=== PATIENT | male | born 1930 | race Caucasian/White ===

== ENCOUNTER 2017-05-03 11:27 | Inpatient (IN) | payer OTHER ==
--- NOTE | 2017-05-03 12:07 | CPEKG ---
Heart Rate: 80 RR Interval: 750 P-R Interval: 204 QRSD Interval: 94 QT Interval: 448 QTC Interval: 517 P [place]: 79 QRS [place]: -62 T Wave [place]: 258 EKG Severity - ABNORMAL ECG - EKG Impression: SINUS RHYTHM EKG Impression: LEFT ATRIAL ABNORMALITY EKG Impression: LEFT ANTERIOR FASCICULAR BLOCK EKG Impression: ANTERIOR INFARCT, AGE INDETERMINATE EKG Impression: BORDERLINE T ABNORMALITIES, INFERIOR LEADS EKG Impression: PROLONGED QT INTERVAL Electronically Signed By: Agnes Fernandez 03-May-2017 20:26:28
[2017-05-03] MEDS ORDERED: NS 500 ML IV ONE (13:22)
--- NOTE | 2017-05-03 13:26 | EDPHY ---
H & P Time Seen by Provider: 05/03/17 12:56 HPI/ROS: CHIEF COMPLAINT: Weight loss, left rib pain HISTORY OF PRESENT ILLNESS: The patient is a an 87-year-old male who presents emergency department with left rib pain after falling. The patient states he fell 2 times on Sunday. He now has left anterior rib pain. It is worse with movement. Patient has no significant shortness of breath. He has a chronic cough that is productive of clear sputum. He has no abdominal pain. No nausea or vomiting. No headache or neck pain. The patient does not think he hit his head when he fell. The patient states he does not faint when he falls. He does not become dizzy. He merely "drops." REVIEW OF SYSTEMS: My complete review of systems is negative except as mentioned in the HPI. Past Medical/Surgical History: Prostate CA, lung nodules, syncope, mechanical falls, constipation, failure to thrive, acute kidney injury, hypertension, malnutrition Past surgical history: Prostatectomy Social history: The patient drinks occasionally. He occasionally smokes cigars. Smoking Status: Current some day smoker Physical Exam: Vitals noted GENERAL: cachectic, alert. HEAD: No evidence of trauma. EYES: PERRLA, EOMI, normal to inspection. ENT: Airway intact, no dental or oral injury, no malocclusion, dry mucous membranes, normal external examination. NECK: The trachea is midline. There is no crepitus. The C-spine is nontender. NEXUS criteria is negative (no midline tenderness, no distracting injury, no altered mental status, no recent alcohol use, no focal neurologic deficit). RESPIRATORY: Clear to auscultation bilaterally, no rales, rhonchi or wheezing. There is no crepitus or palpable rib fractures. Minimal left anterior tenderness to palpation. CVS: Regular rate and rhythm, no rubs, murmurs, or gallops. ABDOMEN: Soft, nontender, nondistended, normal bowel sounds, no bruising or abrasions. Pelvis: Stable. No tenderness palpation. Hips full range of motion. BACK: Normal to inspection, no spinal tenderness, no spinal step off, no notable bruising or abrasions. SKIN: Normal color, warm, dry. No pallor or diaphoresis. EXTREMITIES: Right upper extremity: Atraumatic. No visible signs of trauma. No tenderness palpation. Neurovascular intact distally. Left upper extremity: Atraumatic. No visible signs of trauma. No tenderness palpation. Neurovascular intact distally. Right lower extremity: Atraumatic. No visible signs of trauma. No tenderness palpation. Neurovascular intact distally. Left lower extremity: Atraumatic. No visible signs of trauma. No tenderness palpation. Neurovascular intact distally. Atraumatic, neurovascularly intact distally in all extremities, pelvis is stable , hips with full range of motion, moves all extremities freely. NEURO/PSYCH: Alert and oriented x 3, GCS 15, normal mood and affect, normal motor sensory exam. Constitutional: Initial Vital Signs Temperature (C) 36.4 C 05/03/17 11:35 Heart Rate 80 05/03/17 11:35 Respiratory Rate 20 05/03/17 11:35 Blood Pressure 83/55 L 05/03/17 11:35 O2 Sat (%) 88 L 05/03/17 11:35 O2 Delivery Mode Room Air Allergies/Adverse Reactions: Penicillins Allergy (Unknown, Verified 05/03/17 11:38) Unknown Home Medications: Medication Instructions Recorded NK [No Known Home Meds] 05/03/17 Medical Decision Making - Diagnostics Imaging Results: Imaging Impressions Chest X-Ray 05/03/17 13:22 Impression: 1. Acute displaced left eighth and ninth rib fractures, with a small left-sided pneumothorax. 2. Small left pleural effusion versus hemothorax. 3. Bilateral lower lobe infiltrates, left greater than right, and a right posterior perihilar infiltrate. Clinical correlation and follow-up radiography to ensure complete resolution is suggested. If the above findings fail to resolve, chest CT imaging is warranted. Findings were discussed with ELTON FERNANDEZ MD at 14:29, on 05/03/2017. Head CT 05/03/17 13:22 Impression: Stable noncontrast CT of the brain, with underlying atrophy and white matter disease. Results called to Dr. Elton Fernandez at 2:10 PM at the time of the interpretation. ED Course/Re-evaluation: In the emergency department I discussed possible etiologies with the patient. I answered all his questions. Patient was given normal saline 500 mL IV for hydration. Laboratory studies were obtained due to his recurrent falls. I ordered head CT without contrast due to his recurrent falls. Chest x-ray was ordered. The patient has abnormal laboratory values. His troponin is elevated at 1.79. His creatinine is elevated 1.9. He has mildly elevated LFTs. He is mildly anemic. EKG: Sinus rhythm at 80. Left anterior fascicular block. Prolonged QT. Old anterior infarct. ST elevation in V3. On recheck the patient continues to complain of mild left rib pain. No new chest pain or shortness of breath. Head CT: Please refer the dictated report by the radiologist, Dr. Calixto. No acute disease noted. Chest x-ray: I discussed the result with Dr. Govea. The patient has 2 left -sided rib fractures. There is a small left-sided pneumothorax. Patient has a noted opacity in the right hilum as well as lower lobe infiltrate. I discussed with Dr. Govea the possibility of pneumonia verses mass verses hemothorax. I consulted with Dr. Ventura from the hospitalist service. We reviewed the patient, labs, and x-ray images. Blood cultures were ordered. Patient was given aspirin 324 mg orally. He was given Levaquin 750 mg IV to cover for possible infiltrate. I paged both Cardiology and Trauma Services. On recheck the patient was without new complaint. I CT of the chest was ordered. Due the patient's elevated creatinine 1.9, the test was ordered without contrast. I discussed this with Dr. Govea. I discussed placement with Dr. Ventura. He recommended PCU. We discussed the diagnosis of rib fracture, pneumothorax, mass Differential Diagnosis: My differential includes but is not limited to fracture, contusion, pneumothorax , hemothorax, dissection, aneurysm, ACS, acute VT, electrolyte abnormality, sugar abnormality, subdural hematoma, CVA, malignancy, rib fracture, pneumothorax, hemothorax, mass Critical Care Time: The patient required 35 minutes of critical care time. This was exclusive of any unbundled procedure. This was due to the patient's need for frequent rechecks, diagnosis with an elevated troponin v, pulmonary mass vs hemothorax vs infiltrate, pneumothorax, rib fracture, consultation with Trauma Service, cardiology and hospitalist service. - Data Points Laboratory Results: Laboratory Results 05/03/17 12:01 05/03/17 12:05/03/17 05/03/17 12: 12: WBC 3.90 10^3/uL 10^3/uL (3.80-9.50) RBC 3.76 10^6/uL L 10^6/uL (4.40-6.38) Hgb 12.1 g/dL L g/dL (13.7-17.5) Hct 36.9 % L % (40.0-51.0) MCV 98.1 fL fL (81.5-99.8) MCH 32.2 pg pg (27.9-34.1) MCHC 32.8 g/dL g/dL (32.4-36.7) RDW 14.5 % % (11.5-15.2) Plt Count 109 10^3/uL L 10^3/uL (150-400) MPV 11.4 fL fL (8.7-11.7) Neut % (Auto) 86.1 % H % (39.3-74.2) Lymph % (Auto) 10.3 % L % (15.0-45.0) [place] % (Auto) 2.3 % L % (4.5-13.0) Eos % (Auto) 0.0 % L % (0.6-7.6) Baso % (Auto) 1.0 % % (0.3-1.7) Nucleat RBC Rel Count 0.0 % % (0.0-0.2) Absolute Neuts (auto) 3.36 10^3/uL 10^3/uL (1.70-6.50) Absolute Lymphs (auto) 0.40 10^3/uL L 10^3/uL (1.00-3.00) Absolute Monos (auto) 0.09 10^3/uL L 10^3/uL (0.30-0.80) Absolute Eos (auto) 0.00 10^3/uL L 10^3/uL (0.03-0.40) Absolute Basos (auto) 0.04 10^3/uL 10^3/uL (0.02-0.10) Absolute Nucleated RBC 0.00 10^3/uL 10^3/uL (0-0.01) Immature Gran % 0.3 % % (0.0-1.1) Seg Neutrophils % 20 % % Band Neutrophils % 54 % % Lymphocytes % 15 % % Monocytes % 3 % % Metamyelocytes % 8 % % Immature Gran # 0.01 10^3/uL 10^3/uL (0.00-0.10) Absolute Seg Neuts 0.78 10^/uL L 10^/uL (1.70-6.50) Absolute Band Neuts 2.11 10^3/uL H 10^3/uL (0.00-0.70) Absolute Lymphocytes 0.59 10^3/uL L 10^3/uL (1.00-3.00) Absolute Monocytes 0.12 10^3/uL L 10^3/uL (0.30-0.80) Absolute Metamyelocyte 0.31 10^3/mL H 10^3/mL (0.00-0.00) Toxic Vacuolation PRESENT H Dohle Bodies PRESENT H Platelet Estimate DECREASED L (ADEQ) Polychromasia 1+ H Oval Macrocytes 1+ H Echinocytes 1+ H Elliptocytes 1+ H Smear Review By Pending Sodium 135 mEq/L mEq/L (134-144) Potassium 4.3 mEq/L mEq/L (3.5-5.2) Chloride 100 mEq/L mEq/L (97-110) Carbon Dioxide 18 mEq/l L mEq/l (22-31) Anion Gap 17 mEq/L H mEq/L (8-16) BUN 54 mg/dL H mg/dL (7-23) Creatinine 1.9 mg/dL H mg/dL (0.7-1.3) Estimated GFR 34 Glucose 101 mg/dL H mg/dL (70-100) Calcium 9.4 mg/dL mg/dL (8.5-10.4) Total Bilirubin 1.7 mg/dL H mg/dL (0.1-1.4) Conjugated Bilirubin 0.9 mg/dL H mg/dL (0.0-0.5) Unconjugated Bilirubin 0.8 mg/dL mg/dL (0.0-1.1) AST 48 IU/L IU/L (17-59) ALT 23 IU/L IU/L (21-72) Alkaline Phosphatase 90 IU/L IU/L (38-126) Troponin I 1.790 ng/mL H ng/mL (0.000-0.034) Total Protein 6.1 g/dL L g/dL (6.3-8.2) Albumin 3.0 g/dL L g/dL (3.5-5.0) Lipase 49 IU/L IU/L (23-300) Medications Given: Discontinued Medications Sodium Chloride (Ns) 500 mls @ 1,000 mls/hr IV EDNOW ONE PRN Reason: Protocol Stop: 05/03/17 13:51 Last Admin: 05/03/17 13:46 Dose: 500 mls Departure - Departure Disposition: [facility] Inpatient Acute Clinical Impression: Fall Qualifiers: Encounter type: initial encounter Qualified Code(s): W19.XXXA - Unspecified fall, initial encounter Chest wall contusion Qualifiers: Encounter type: initial encounter Laterality: left Qualified Code(s): S20.212A - Contusion of left front wall of thorax, initial encounter Rib fractures Qualifiers: Encounter type: initial encounter Rib fracture type: multiple ribs Laterality: left Pneumothorax Qualifiers: Pneumothorax type: traumatic Encounter type: initial encounter Qualified Code(s ): S27.0XXA - Traumatic pneumothorax, initial encounter Condition: Good Instructions: Contusion in Adults (ED), Fall Prevention (ED)
[2017-05-03 14:01] LABS: % IMMATURE GRANULYOCYTES 0.3 % (0.0-1.1); ABSOLUTE IMMATURE GRANULOCYTES 0.01 10^3/uL (0.00-0.10); ADD DIFF? NO; ADD MORPH? NO; ADD SCAN? YES; ATYPICAL LYMPHOCYTE FLAG 0 (0-99); FRAGMENT RBC FLAG 0 (0-99); HEMATOCRIT 36.9 % (40.0-51.0); HEMOGLOBIN 12.1 g/dL (13.7-17.5); LIPEMIA HEMOLYSIS FLAG 80 (0-99); MEAN CELL HEMOGLOBIN 32.2 pg (27.9-34.1); MEAN CELL HEMOGLOBIN CONCENTR. 32.8 g/dL (32.4-36.7); MEAN CELL VOLUME 98.1 fL (81.5-99.8); MEAN PLATELET VOLUME 11.4 fL (8.7-11.7); PLATELET CLUMPS FLAG 20 (0-99); PLATELET COUNT 109 10^3/uL (150-400); RED BLOOD CELL COUNT 3.76 10^6/uL (4.40-6.38); RED CELL DISTRIBUTION WIDTH 14.5 % (11.5-15.2)
[2017-05-03 14:03] LABS: LEFT SHIFT FLG 300 (0-99)
[2017-05-03 14:08] LABS: ALANINE AMINOTRANSFERASE 23 IU/L (21-72); ALKALINE PHOSPHATASE 90 IU/L (38-126); ANION GAP 17 mEq/L (8-16); ASPARTATE AMINOTRANSFERASE 48 IU/L (17-59); BILIRUBIN,TOTAL 1.7 mg/dL (0.1-1.4); BILIRUBIN-CONJUGATED 0.9 mg/dL (0.0-0.5); BILIRUBIN-UNCONJUGATED 0.8 mg/dL (0.0-1.1); CALCIUM 9.4 mg/dL (8.5-10.4); CARBON DIOXIDE 18 mEq/l (22-31); CHLORIDE 100 mEq/L (97-110); CREATININE 1.9 mg/dL (0.7-1.3); GLOMERULAR FILTRATION RATE 34; GLUCOSE 101 mg/dL (70-100); POTASSIUM 4.3 mEq/L (3.5-5.2); SODIUM 135 mEq/L (134-144); TOTAL PROTEIN 6.1 g/dL (6.3-8.2)
[2017-05-03 14:24] LABS: SCAN POSITIVE
[2017-05-03] MEDS ORDERED: ASPIRIN 81 MG CHEWABLE TAB PO ONE (14:29)
[2017-05-03 14:36] LABS: ELLIPTOCYTES 1+; MACROCYTES 1+; PLATELET ESTIMATE DECREASED (ADEQ); POLYCHROMASIA 1+; TOXIC VACUOLIZATION PRESENT
[2017-05-03 14:37] LABS: ECHINOCYTES 1+
[2017-05-03] MEDS ORDERED: ONDANSETRON 4 MG/2 ML VIAL IVP PRN (15:53)
[2017-05-03] MEDS ORDERED: ONDANSETRON DISINTEGRATING 4 MG TAB PO PRN (15:53)
[2017-05-03] MEDS ORDERED: oxyCODONE IR 5 MG TAB PO PRN (15:53)
[2017-05-03] MEDS ORDERED: ACETAMINOPHEN 325 MG TAB PO PRN (15:53)
[2017-05-03] MEDS ORDERED: NS 1,000 ML IV ONE (16:13)
--- NOTE | 2017-05-03 16:56 | CPEKG ---
Heart Rate: 91 RR Interval: 659 P-R Interval: 216 QRSD Interval: 94 QT Interval: 412 QTC Interval: 508 P [place]: 68 QRS [place]: -50 T Wave [place]: 97 EKG Severity - ABNORMAL ECG - EKG Impression: SINUS RHYTHM EKG Impression: FIRST DEGREE AV BLOCK EKG Impression: LEFT ATRIAL ABNORMALITY EKG Impression: LEFT ANTERIOR FASCICULAR BLOCK EKG Impression: ANTERIOR INFARCT, AGE INDETERMINATE EKG Impression: PROLONGED QT INTERVAL EKG Impression: COMPARED WITH 03 MAY 2017 AT 12:02, NO SIGNIFICANT CHANGE Electronically Signed By: Philly Louie 04-May-2017 21:24:56
--- NOTE | 2017-05-03 17:13 | ECHO ---
[id number] + + [address] : : [place] [address] : : [phone] + Adult Echocardiographic Report + ---------+ :Name: YESSICA MIXONfletchermarcus Date: 05/03/2017 04:06 PM : : Hospital Admission Number: [id number] Locat ion: ER10: :: 1930 Gender: Male Height: 67 in : :Age: 87 yrs Race: WH Weight: 95 lb : :Reason For Study: eval for wall motion abnormalities : : BSA: 1.5 mete rs2 : :History: ecg anterior [place] : + ---------+ MMode/2D Measurements & Calculations IVSd: 1.3 cm LVIDd: 3.7 cm FS: 40.2 % Ao root diam: 3.6 cm LVPWd: 1.2 cm LVIDs: 2.2 cm EDV(Teich): 57.4 ml ESV(Teich): 16.2 ml EF(Teich): 71.8 % LVOT diam: 2.1 cm LVOT area: 3.5 cm2 Normal Measurement Values: + + :LVIDd (3.5-5.7cm) IVSd (0.6-1.1cm) LVPWd (0.6-1.1cm) Aortic Root (2.0-3.7cm)Left Atrium (1.5-4.0cm): :LV Vol(d) (76-115ml) LV Vol(s) (29-48ml) Ejec Fraction (50-65%)PV Young (0.6- 1.2m/s) TV Young (0.4-1.0m/s) : :MV E Young (0.8-1.0m/s)MV A Young (0.3-1.0m/s)LVOT Young (0.7-1.2m/s) Asc Ao Young ( 0.9-1.8m/s) : + + Doppler Measurements & Calculations Ao V2 max: LV V1 max: SV(LVOT): PA V2 max: 250.0 cm/sec 79.7 cm/sec 49.2 ml 99.1 cm/sec Ao max P.1 mmHg LV V1 max PG: PA max P.9 mmHg Ao mean P.0 mmHg2.5 mmHg Ao V2 mean: LV V1 mean P.7 cm/sec 1.0 mmHg Ao V2 VTI: 41.0 cm LV V1 mean: 57.2 cm/sec TRE(I,D): 1.2 cm2 LV V1 VTI: 14.2 cm TRE(V,D): 1.1 cm2 TR max young: 274.0 cm/sec TR max P.0 mmHg RAP systole: 5.0 mmHg RVSP(TR): 35.0 mmHg Left Ventricle The left ventricle is normal in size and function. There is moderate concentric left ventricular hypertrophy. Ejection Fraction = 65-70%. No regional wall motion abnormalities noted. Right Ventricle The right ventricle is normal in size and function. Atria The left atrial size is normal. Right atrial size is normal. Mitral Valve The mitral valve leaflets appear thickened, but open well. There is mild mitral annular calcification. There is no mitral valve stenosis. There is mild mitral regurgitation. Tricuspid Valve The tricuspid valve is normal in structure and function. There is no tricuspid stenosis. There is mild tricuspid regurgitation. Right ventricular systolic pressure is 35mmHg. There is Doppler evidence for mild pulmonary hypertension. Aortic Valve The aortic valve is trileaflet. Moderate Aortic Valve Calcification. Mild valvular aortic stenosis. Mild aortic regurgitation. Pulmonic Valve The pulmonic valve is normal in structure and function. Mild pulmonic valvular regurgitation. Great Vessels Mild aortic root dilatation. Pericardium/Pleural There is no pericardial effusion. There is a large pleural effusion. Conclusion A two-dimensional transthoracic echocardiogram with M-mode and Doppler was performed. Technically limited apical window. The left ventricle is normal in size and function. There is moderate concentric left ventricular hypertrophy. Ejection Fraction = 65-70%. Mild mitral annular calcification. There is mild mitral regurgitation. There is mild tricuspid regurgitation. Right ventricular systolic pressure is 35mmHg. There is Doppler evidence for mild pulmonary hypertension. Moderate Aortic Valve Calcification Mild valvular aortic stenosis. Mild aortic regurgitation. Mild pulmonic valvular regurgitation. Mild aortic root dilatation. There is a large pleural effusion. Final Reading Physician: Juana Longoria signed on 05/03/2017 05:12 PM Ordering Physician: ERENDIRA ROWE Performed By: Rosanne Coello
--- NOTE | 2017-05-03 17:31 | GHP ---
[f rep st] HISTORY AND PHYSICAL DATE OF ADMISSION: 05/03/2017 CHIEF COMPLAINT: Fall 3 days ago. HISTORY OF PRESENT ILLNESS: This is an 87-year-old man who lives in [place] who had a fall 4 days ago. He landed on his left side. He has had left chest pain since then. He fell again yesterday. Because of these 2 falls, he presented to the emergency department. He denies any preceding dizzine ss, shortness of breath, chest pain, or palpitations before the fall. He is not really sure why he h as fallen. He tells me he has fallen about 4 times in the past year, 2 in the last week. He is not really feeling short of breath right now. He has had problems eating for some time which have gotten worse in the last month. He has also had problems speaking with a very hoarse voice. He has lost a lot of weight recently. PAST MEDICAL/SURGICAL HISTORY: 1. Hypertension. 2. BPH, status post [address] Solorzano. 3. Descending aortic aneurysm. 4. History of pulmonary nodule. MEDICATIONS: He is taking Aleve and a prostate medication. ALLERGIES: Penicillin. FAMILY HISTORY: Parents are . SOCIAL HISTORY: He lives outside of [place]. He rarely drinks. He smokes about 5 cigars a month . REVIEW OF SYSTEMS: A 10-point review of systems is conducted and is negative except per HPI. PHYSICAL EXAMINATION: VITAL SIGNS: Current blood pressure is 115/61, heart rate 87, respiratory rat e 22, satting 98% on room air, temperature is 36.4. GENERAL: The patient is a pleasant man who is r esting comfortably, having an echocardiogram performed while I am seeing him, in no acute distress. HEENT: Normocephalic, atraumatic. He does have an abnormal voice. CARDIOVASCULAR: Regular rate an d rhythm. No murmurs, rubs, or gallops. PULMONARY: Lungs clear to auscultation bilaterally. ABDOM EN: Soft, nontender, nondistended. He is somewhat scaphoid. SKIN: No rash. : No Alfaro. NEURO LOGIC: Alert and oriented x3. He is moving all extremities. PSYCHIATRIC: Normal mood and affect. LABORATORY DATA: Hemoglobin is 12.1. Creatinine is 1.9. Bicarb is 18. Troponin is 1.7. DATA: 1. Head CT shows nothing acute. He does have some cerebral atrophy. 2. I discussed this with Dr. Fernandez. I will admit to the PCU. 3. Chest x-ray, which I personally viewed and interpreted, shows 2 displaced rib fractures on the le ft side. He has an infiltrate in the perihilar region. 4. Electrocardiogram which I personally viewed and interpreted, shows Q-waves in leads V1 through V3 . He has an abnormal ST-segment, mostly notable in V3, with a biphasic T-wave, inverted T-wave in V4 , V5. This is quite different from his previous EKG. IMPRESSION AND PLAN: An 87-year-old man with a fall, rib fractures, elevated troponin. 1. Fall: Unclear why he has fallen twice in the last week. It is possible he has had an acute sahil nary event which triggered this. A preliminary read of the echocardiogram shows mild to moderate aor tic stenosis with all collazo moving appropriately. I am told his cardiac function is normal. We will follow him on telemetry, follow along with Cardiology, trend his troponins. Will have physical geographer apy and occupational therapy see him. 2. Elevated troponin/EKG changes: Appreciate Cardiology consultation. We will trend his troponins for now. He has gotten an aspirin in the emergency department. 3. Rib fractures and pneumothorax: He will be followed by Trauma Surgery. Appreciate their assista nce. I do not think he needs a chest tube right now. 4. Acute kidney injury: This is likely prerenal in nature. I have given him some fluids. Will fol low closely and avoid nephrotoxins. Check his kidney function again tomorrow. 5. Dysphagia: He has had swallowing problems for about a month. He tells me he has had significant weight loss recently. He does look cachectic on exam. I have ordered a swallow evaluation for him. Would consider neck CT scan if his kidney function improves with IV contrast to evaluate for an occ ult cancer. 6. Code status: He would like to be Do Not Resuscitate. He is clear on this. 7. Venous thromboembolism risk: He is moderate to high. However, concern that he may have a small hemorrhage in his lungs. I will place him on sequential compression devices for now. If his hemoglo bin is stable and infiltrates are stable, would start venous thromboembolism prophylaxis. /[id number]/MODL
[2017-05-03 19:18] LABS: LACGHOST ORDER
--- NOTE | 2017-05-03 19:19 | PDCARCONS ---
Cardiology Consult Reason for Consult: Abnormal EKG Chief Complaint: Fall Requesting Physician: Dr. Disla History of Present Illness: 87-year-old male well known to our service. He is cared for by my partner Dr. Brandon Astorga. He has a longstanding history of multiple episodes of syncope and falls. Today he had a fall fracturing ribs. An EKG was performed as part of his evaluation and he was found to have some changes concerning. I am asked to comment. On my arrival he is resting comfortably. He has no chest pain. He has no shortness of breath. He has had no PND orthopnea. History is significantly limited. Past cardiac history is significant for hypertension, moderate carotid artery disease. He has had significant weight loss associated with cachexia. Patient has had cardiac workup in the past including a negative nuclear stress test in 2014. He had an echocardiogram done at that time which showed normal ejection fraction with mild aortic stenosis. He had a thoracic aortic aneurysm of 4.1 cm. He had a PA pressure of 34 mm of mercury. His right ventricle was normal. Holter monitor did not reveal any significant dysrhythmia. He was last seen in the clinic in July of 2015. His EKG shows sinus rhythm with anterior Q-waves. This is unchanged from prior EKG. There are nonspecific ST-T changes also noted. Not significantly different from prior EKG. History Information - Allergies/Home Medication List Allergies/Adverse Reactions: Penicillins Allergy (Unknown, Verified 05/03/17 11:38) Unknown Home Medications: NK [No Known Home Meds] 05/03/17 [Last Taken Unknown] I have personally reviewed and updated: medical history Past Medical History: - Past Medical History hypertension Additional medical history: Recurrent syncope. Mild aortic stenosis. - Surgical History Reports: no pertinent surgical hx - Family History Positive for: non-pertinent - Social History Smoking Status: Current some day smoker Physical Exam Physical Exam: Temp Pulse Resp BP Pulse Ox 36.4 C 94 18 148/82 H 96 05/03/17 16:47 05/03/17 16:47 05/03/17 16:47 05/03/17 16:47 05/03/17 16:47 O2 (L/minute) 2 Constitutional: chronically ill appearing, cachectic, other (Severe bitemporal wasting with cachexia) Eyes: anicteric sclera, pale conjunctiva Ears, Nose, Mouth, Throat: dry mucous membranes Cardiovascular: regular rate and rhythym, systolic murmur Respiratory: no respiratory distress, no rales or rhonchi Gastrointestinal: other (The abdomen was stiff without tenderness.) Neurologic: other (Patient was awake and responsive. He had significant difficulty hearing which limited communication) Lymph, Heme, Immunologic: no cervical LAD, no supraclavicular LAD Lab and Imaging 05/03/17 12:01 05/03/17 12:01 WBC 3.90 10^3/uL (3.80-9.50) 05/03/17 12:01 RBC 3.76 10^6/uL (4.40-6.38) L 05/03/17 12:01 Hgb 12.1 g/dL (13.7-17.5) L 05/03/17 12:01 Hct 36.9 % (40.0-51.0) L 05/03/17 12:01 MCV 98.1 fL (81.5-99.8) 05/03/17 12:01 MCH 32.2 pg (27.9-34.1) 05/03/17 12:01 MCHC 32.8 g/dL (32.4-36.7) 05/03/17 12:01 RDW 14.5 % (11.5-15.2) 05/03/17 12:01 Plt Count 109 10^3/uL (150-400) L 05/03/17 12:01 MPV 11.4 fL (8.7-11.7) 05/03/17 12:01 Neut % (Auto) 86.1 % (39.3-74.2) H 05/03/17 12:01 Lymph % (Auto) 10.3 % (15.0-45.0) L 05/03/17 12:01 [place] % (Auto) 2.3 % (4.5-13.0) L 05/03/17 12:01 Eos % (Auto) 0.0 % (0.6-7.6) L 05/03/17 12:01 Baso % (Auto) 1.0 % (0.3-1.7) 05/03/17 12:01 Nucleat RBC Rel Count 0.0 % (0.0-0.2) 05/03/17 12:01 Absolute Neuts (auto) 3.36 10^3/uL (1.70-6.50) 05/03/17 12:01 Absolute Lymphs (auto) 0.40 10^3/uL (1.00-3.00) L 05/03/17 12:01 Absolute Monos (auto) 0.09 10^3/uL (0.30-0.80) L 05/03/17 12:01 Absolute Eos (auto) 0.00 10^3/uL (0.03-0.40) L 05/03/17 12:01 Absolute Basos (auto) 0.04 10^3/uL (0.02-0.10) 05/03/17 12:01 Absolute Nucleated RBC 0.00 10^3/uL (0-0.01) 05/03/17 12:01 Immature Gran % 0.3 % (0.0-1.1) 05/03/17 12:01 Seg Neutrophils % 20 % 05/03/17 12:01 Band Neutrophils % 54 % 05/03/17 12:01 Lymphocytes % 15 % 05/03/17 12:01 Monocytes % 3 % 05/03/17 12:01 Metamyelocytes % 8 % 05/03/17 12:01 Immature Gran # 0.01 10^3/uL (0.00-0.10) 05/03/17 12:01 Absolute Seg Neuts 0.78 10^/uL (1.70-6.50) L 05/03/17 12:01 Absolute Band Neuts 2.11 10^3/uL (0.00-0.70) H 05/03/17 12:01 Absolute Lymphocytes 0.59 10^3/uL (1.00-3.00) L 05/03/17 12:01 Absolute Monocytes 0.12 10^3/uL (0.30-0.80) L 05/03/17 12:01 Absolute Metamyelocyte 0.31 10^3/mL (0.00-0.00) H 05/03/17 12:01 Toxic Vacuolation PRESENT H 05/03/17 12:01 Dohle Bodies PRESENT H 05/03/17 12:01 Platelet Estimate DECREASED (ADEQ) L 05/03/17 12:01 Polychromasia 1+ H 05/03/17 12:01 Oval Macrocytes 1+ H 05/03/17 12:01 Echinocytes 1+ H 05/03/17 12:01 Elliptocytes 1+ H 05/03/17 12:01 Smear Review By Buddy TATE MD 05/03/17 12:01 VBG Lactic Acid 4.0 mmol/L (0.7-2.1) H 05/03/17 18:12 Sodium 135 mEq/L (134-144) 05/03/17 12:01 Potassium 4.3 mEq/L (3.5-5.2) 05/03/17 12:01 Chloride 100 mEq/L (97-110) 05/03/17 12:01 Carbon Dioxide 18 mEq/l (22-31) L 05/03/17 12:01 Anion Gap 17 mEq/L (8-16) H 05/03/17 12:01 BUN 54 mg/dL (7-23) H 05/03/17 12:01 Creatinine 1.9 mg/dL (0.7-1.3) H 05/03/17 12:01 Estimated GFR 34 05/03/17 12:01 Glucose 101 mg/dL (70-100) H 05/03/17 12:01 Calcium 9.4 mg/dL (8.5-10.4) 05/03/17 12:01 Total Bilirubin 1.7 mg/dL (0.1-1.4) H 05/03/17 12:01 Conjugated Bilirubin 0.9 mg/dL (0.0-0.5) H 05/03/17 12:01 Unconjugated Bilirubin 0.8 mg/dL (0.0-1.1) 05/03/17 12:01 AST 48 IU/L (17-59) 05/03/17 12:01 ALT 23 IU/L (21-72) 05/03/17 12:01 Alkaline Phosphatase 90 IU/L (38-126) 05/03/17 12:01 Troponin I 1.360 ng/mL (0.000-0.034) H 05/03/17 18:12 Total Protein 6.1 g/dL (6.3-8.2) L 05/03/17 12:01 Albumin 3.0 g/dL (3.5-5.0) L 05/03/17 12:01 Lipase 49 IU/L (23-300) 05/03/17 12:01 Visualized and Interpreted Chest x-ray results: Yes Interpretation: Chest x-ray revealed no cardiomegaly. Calcification of the aorta, rib fractures, moderate right-sided infiltrate. EKG additional interpertation: EKG 1 reveals sinus rhythm with anterior Q-waves and nonspecific ST-T changes. This is unchanged from prior EKG. EKG 2 continues to show anterior Q-waves Echocardiogram: Echocardiogram reveals left ventricular hypertrophy with no pericardial effusion the anterior wall is henrik normally with mild aortic stenosis. Unchanged from echo of 2015. Mild pulmonary hypertension. A/P Assessment: Problem list: 1. Recurrent longstanding syncope/falls. 2. Left ventricular hypertrophy associated with abnormal EKG with pseudo infarct pattern. 3. Mild aortic stenosis. 4. Diffuse atherosclerosis by imaging. 5. Thoracic aortic aneurysm of 4.1 cm. 6. Severe cachexia. Discussion: No acute cardiac etiology for today's event identified with stable echocardiogram, stable EKG, and clinical history. Patient has mildly elevated troponin of uncertain etiology. This may represent his elevated creatinine at 1.9 in the setting of severe cachexia I think this is likely significant reduction in GFR. At this point no further cardiac evaluation recommended. Agree with telemetry monitoring. Long-term planning should be addressed as his clinical situation suggest significant chronic long-term illness with poor prognosis. Plan: Daily aspirin. Telemetry monitoring. No further cardiac evaluation at this time. Past Medical History PMH: - Personal History Current Tetanus Diphtheria and Acellular Pertussis (TDAP): Unsure - Medical/Surgical History Hx Asthma: No Hx Chronic Respiratory Disease: No Hx Cardiac Disease: Yes Hx Diabetes: No Hx Renal Disease: No Hx Alcoholism: No Hx Cirrhosis: No Hx HIV/AIDS: No Hx Splenectomy or Spleen Trauma: No Other PMH: bph. HTN. PROSTATE CA. SYNCOPE. FTT. JUAN CARLOS. MALNUTRITION - Social History Smoking Status: Current some day smoker Additional Social History: Review of Systems Review of Systems: - Review of Systems Constitutional: weakness, weight loss Respiratory: no symptoms reported Cardiac: no symptoms reported Gastrointestinal/Abdominal: no symptoms reported Genitourinary: no symptoms
--- NOTE | 2017-05-03 21:11 | GCON ---
[f rep st] CONSULTATION DATE OF CONSULTATION: 05/03/2017 HISTORY OF PRESENT ILLNESS: The patient is an 87-year-old male, well known to me, who sustained the fall approximately 3-4 days ago, landing on his left side. He has been seen in the ER for evaluation of chest pain, but he presents today with at least 3 rib fractures on the left. He denies any loss of consciousness. He had no syncopal or dizzy spells prior to the fall and is not really sure why he fell. He appears to have a significant weight loss recently and he has recently lost his from cancer. PAST MEDICAL HISTORY: Includes hypertension, BPH, status post TURP procedure. He has a descending ao rtic aneurysm, history of pulmonary nodule and an inguinal hernia repair. MEDICATIONS: Include Aleve and a prostate medicine. ALLERGIES: Penicillin. FAMILY HISTORY: Noncontributory. REVIEW OF SYSTEMS: Reveals no new issues on a full 10-point review of systems. Specifically does no t smoke. He denies any cardiac history. PHYSICAL EXAMINATION: GENERAL: An alert, cooperative, 87-year-old male who is quite sharp, in no ac alfonzo distress. HEAD AND NECK: Reveals no icterus. His pupils are normal. There are no bruits. No oral lesions. NECK: Supple. There is no thyromegaly. CHEST: Clear and symmetric. He is tender on the left side with his rib fractures. CARDIAC: Regular rhythm without murmurs. ABDOMEN: Soft and nontender, nondistended and scaphoid with bowel sounds. NEUROLOGIC: Physiologic and symmetric. PSYC HIATRIC: Reveals him to be oriented and alert, cooperative. SKIN: Reveals no major other lesions. DIAGNOSTIC STUDIES: Workup in the emergency room included a head CT scan, which was negative. Chest x-ray revealing some displaced rib fractures on the left. EKG reveals some new changes, possible inf arct. IMPRESSION: 1. Fall of uncertain etiology. 2. Multiple rib fractures without complications so far. 3. Weight loss. PLAN: Followup chest x-ray in the morning and respiratory care for his rib fractures. /[id number]/MODL
[2017-05-03] MEDS ORDERED: NS 1,000 ML IV SCH (23:30)
[2017-05-04 05:06] LABS: % IMMATURE GRANULYOCYTES 0.7 % (0.0-1.1); ABSOLUTE IMMATURE GRANULOCYTES 0.02 10^3/uL (0.00-0.10); ADD DIFF? NO; ADD MORPH? NO; ADD SCAN? YES; ATYPICAL LYMPHOCYTE FLAG 40 (0-99); FRAGMENT RBC FLAG 0 (0-99); HEMATOCRIT 28.9 % (40.0-51.0); HEMOGLOBIN 9.8 g/dL (13.7-17.5); LIPEMIA HEMOLYSIS FLAG 90 (0-99); MEAN CELL HEMOGLOBIN 32.2 pg (27.9-34.1); MEAN CELL HEMOGLOBIN CONCENTR. 33.9 g/dL (32.4-36.7); MEAN CELL VOLUME 95.1 fL (81.5-99.8); MEAN PLATELET VOLUME 11.4 fL (8.7-11.7); PLATELET CLUMPS FLAG 10 (0-99); PLATELET COUNT 103 10^3/uL (150-400); RED BLOOD CELL COUNT 3.04 10^6/uL (4.40-6.38); RED CELL DISTRIBUTION WIDTH 14.3 % (11.5-15.2)
[2017-05-04 05:18] LABS: INR 1.62 (0.83-1.16); PROTIME(PATIENT) 19.3 SEC (12.0-15.0)
[2017-05-04 05:22] LABS: LEFT SHIFT FLG 300 (0-99)
[2017-05-04 05:34] LABS: ALANINE AMINOTRANSFERASE 24 IU/L (21-72); ALBUMIN 2.1 g/dL (3.5-5.0); ALKALINE PHOSPHATASE 76 IU/L (38-126); ANION GAP 11 mEq/L (8-16); ASPARTATE AMINOTRANSFERASE 33 IU/L (17-59); BILIRUBIN,TOTAL 1.4 mg/dL (0.1-1.4); CALCIUM 8.4 mg/dL (8.5-10.4); CARBON DIOXIDE 19 mEq/l (22-31); CHLORIDE 106 mEq/L (97-110); CREATININE 2.2 mg/dL (0.7-1.3); GLOMERULAR FILTRATION RATE 28; POTASSIUM 4.5 mEq/L (3.5-5.2); SODIUM 136 mEq/L (134-144); TOTAL PROTEIN 4.4 g/dL (6.3-8.2)
[2017-05-04 05:39] LABS: GLUCOSE 38 mg/dL (70-100)
[2017-05-04 06:07] LABS: SCAN POSITIVE
[2017-05-04 06:15] LABS: PLATELET ESTIMATE DECREASED (ADEQ)
[2017-05-04 06:17] LABS: ECHINOCYTES 1+; TOXIC VACUOLIZATION PRESENT
[2017-05-04] MEDS: D5W 1/2 NS 1,000 ML IV SCH ×2 (06:27→20:36)
[2017-05-04 08:28] LABS: BACTERIA 2+ /hpf (NONE SEEN)
[2017-05-04 09:33] LABS: HYALINE CASTS 50-182 /lpf (0-1)
--- NOTE | 2017-05-04 10:00 | WOCRNPDOC ---
WOCRN Advanced Assessment Note - Skin Integrity Problem, Advanced Assess Coccyx Dressing Type: Open to Air Exudate Amount: None Exudate Characteristic(s): None Ruby Wound Tissue: Blanching, Erythema, Intact Ruby Wound Swelling: None Wound Bed Color: Red Site Measurement - Head-to-Toe Length X Width X Depth (cm): [id number] Pressure Injury Stage: Stage 1 Pressure Injury Present on Admit: Yes Skin Integrity Problem Comment: Small area on non-blanching erythema noted directly over distal coccyx, appearance consistent w/ stage 1 pressure injury. Of note, patient also has erythema extending up his coccyx to his sacrum, all of which is currently intact and blanching. Due to his very low BMI, protective foam dressing ordered to cover existing PI and as prophylaxis for surrounding skin. In addition, patient placed on Accu-max mattress w/ pump (applied by nursing last night), micro turns q2 initiated, and pressure relieving waffle cushion ordered for chair. Wound RN will follow up with patient on Friday 05/11.
--- NOTE | 2017-05-04 14:37 | HOSPPROG ---
Hospitalist Progress Note Assessment/Plan: * status post fall with multiple fractures * trauma following * etiology of the falls are unclear but probably is due to overall weakness and debility * cachexia/ weight loss * will get CT scan of the abdomen pelvis to further evaluate * pulmonary consolidation * switched to Invanz as may be postobstructive or aspiration related * chronic kidney disease Subjective: no new complaints Objective: Vital Signs Temp Pulse Resp BP Pulse Ox 35.7 C L 89 20 108/70 99 05/04/17 11:37 05/04/17 11:37 05/04/17 11:37 05/04/17 11:37 05/04/17 11:37 Laboratory Results 05/04/17 04:14 05/04/17 04:14 05/03/17 05/04/17 05/05/17 05:59 05:59 05:59 Intake Total 2407 Output Total 125 Balance 2407 -125 PT 19.3 SEC (12.0-15.0) H 05/04/17 04:14 INR 1.62 (0.83-1.16) H 05/04/17 04:14 - Physical Exam Constitutional: no apparent distress, not in pain, cachectic Ears, Nose, Mouth, Throat: moist mucous membranes, hearing normal Cardiovascular: regular rate and rhythym, no murmur, rub, or gallop Respiratory: no respiratory distress, no rales or rhonchi, clear to auscultation Gastrointestinal: normoactive bowel sounds, soft, non-tender abdomen, no palpable masses Skin: warm Neurologic: AAOx3 Psychiatric: interacting appropriately, not anxious, not encephalopathic, thought process linear ICD10 Worksheet Patient Problems: Problems Problem Status Onset Chest wall contusion Acute Fall Acute Pneumothorax Acute Rib fractures Acute Syncopal episodes Acute
[2017-05-04] MEDS: ERTAPENEM 0.5 GM in NS 100 ML IV SCH (15:38)
--- NOTE | 2017-05-04 17:44 | SOAPPROG ---
SOAP Progress Note Assessment/Plan: Assessment: STABLE WITH LEFT RIB FRACTURES / CHEST X-RAY EXPANDED IN STABLE / REQUIRING OXYGEN SUPPLEMENTATION BREATH SOUNDS EQUAL NO NEW PROBLEMS ON A FULL FOLLOW-UP EXAM Plan: PER INTERNAL MEDICINE 05/04/17 17:43 Objective: Vital Signs Temp Pulse Resp BP Pulse Ox 36.3 C 100 20 124/50 H 99 05/04/17 15:08 05/04/17 15:08 05/04/17 15:08 05/04/17 15:08 05/04/17 15:08 Laboratory Results 05/04/17 04:14 05/04/17 04:14 05/03/17 05/04/17 05/05/17 05:59 05:59 05:59 Intake Total 2407 Output Total 125 Balance 2407 -125 PT 19.3 SEC (12.0-15.0) H 05/04/17 04:14 INR 1.62 (0.83-1.16) H 05/04/17 04:14 ICD10 Worksheet Patient Problems: Problems Problem Status Onset Chest wall contusion Acute Fall Acute Pneumothorax Acute Rib fractures Acute Syncopal episodes Acute
[2017-05-04 20:03] LABS: COLOR AMBER; LEUKOCYTE ESTERASE,URINE NEGATIVE (NEGATIVE); NITRITE,URINE NEGATIVE (NEGATIVE)
[2017-05-05 05:04] LABS: ADD MORPH? NO; ADD SCAN? YES; ATYPICAL LYMPHOCYTE FLAG 0 (0-99); FRAGMENT RBC FLAG 0 (0-99); HEMATOCRIT 31.4 % (40.0-51.0); HEMOGLOBIN 10.7 g/dL (13.7-17.5); LIPEMIA HEMOLYSIS FLAG 90 (0-99); MEAN CELL HEMOGLOBIN 32.2 pg (27.9-34.1); MEAN CELL HEMOGLOBIN CONCENTR. 34.1 g/dL (32.4-36.7); MEAN CELL VOLUME 94.6 fL (81.5-99.8); MEAN PLATELET VOLUME 11.3 fL (8.7-11.7); PLATELET CLUMPS FLAG 0 (0-99); PLATELET COUNT 93 10^3/uL (150-400); RED BLOOD CELL COUNT 3.32 10^6/uL (4.40-6.38); RED CELL DISTRIBUTION WIDTH 14.4 % (11.5-15.2)
[2017-05-05 05:05] LABS: LEFT SHIFT FLG 300 (0-99)
[2017-05-05 05:06] LABS: ANION GAP 11 mEq/L (8-16); CALCIUM 8.9 mg/dL (8.5-10.4); CARBON DIOXIDE 20 mEq/l (22-31); CHLORIDE 102 mEq/L (97-110); CREATININE 2.4 mg/dL (0.7-1.3); GLOMERULAR FILTRATION RATE 26; GLUCOSE 73 mg/dL (70-100); POTASSIUM 4.5 mEq/L (3.5-5.2); SODIUM 133 mEq/L (134-144)
[2017-05-05 05:57] LABS: ADD DIFF? YES; SCAN POSITIVE
[2017-05-05 06:02] LABS: PLATELET ESTIMATE DECREASED (ADEQ); TOXIC GRANULATION PRESENT; TOXIC VACUOLIZATION PRESENT
[2017-05-05] MEDS: D5W 1/2 NS 1,000 ML IV SCH (08:29)
[2017-05-05] MEDS: ERTAPENEM 0.5 GM in NS 100 ML IV SCH (08:31)
[2017-05-05] MEDS ORDERED: NS 1,000 ML IV SCH (10:00)
--- NOTE | 2017-05-05 10:42 | SOAPPROG ---
SOAP Progress Note Assessment/Plan: Assessment: STABLE WITH LEFT RIB FRACTURES / CHEST X-RAY EXPANDED IN STABLE / REQUIRING OXYGEN SUPPLEMENTATION BREATH SOUNDS EQUAL NO NEW PROBLEMS ON A FULL FOLLOW-UP EXAM Plan: PER INTERNAL MEDICINE 05/04/17 17:43 05/05/17 10:40 AFEBRILE/ SOMEWHAT CONFUSED/ BREATHING BETTER/ DECREASED PAIN Objective: Vital Signs Temp Pulse Resp BP Pulse Ox 36.4 C 116 H 22 H 132/76 H 99 05/05/17 08:00 05/05/17 08:00 05/05/17 08:00 05/05/17 08:00 05/05/17 08:15 Laboratory Results 05/05/17 04:05 05/05/17 04:05 05/04/17 05/05/17 05/06/17 05:59 05:59 05:59 Intake Total 2407 380 Output Total 350 Balance 2407 30 PT 19.3 SEC (12.0-15.0) H 05/04/17 04:14 INR 1.62 (0.83-1.16) H 05/04/17 04:14 ICD10 Worksheet Patient Problems: Problems Problem Status Onset Chest wall contusion Acute Fall Acute Pneumothorax Acute Rib fractures Acute Syncopal episodes Acute
--- NOTE | 2017-05-05 11:30 | HOSPPROG ---
Hospitalist Progress Note Assessment/Plan: * status post fall with multiple fractures * trauma following * etiology of the falls are unclear but probably is due to overall weakness and debility * cachexia/ weight loss * CT has a suggestion of possible lung cancer * discussed with family - patient and them would not want any aggressive treatments. they are requesting hospice evaluation * will check a couple tumor markers * pulmonary consolidation * continue IV Invanz * chronic kidney disease Subjective: more confused this morning. Pain seems to be okay Objective: Vital Signs Temp Pulse Resp BP Pulse Ox 36.4 C 116 H 22 H 132/76 H 99 05/05/17 08:00 05/05/17 08:00 05/05/17 08:00 05/05/17 08:00 05/05/17 08:15 Laboratory Results 05/05/17 04:05 05/05/17 04:05 05/04/17 05/05/17 05/06/17 05:59 05:59 05:59 Intake Total 2407 380 Output Total 350 Balance 2407 30 PT 19.3 SEC (12.0-15.0) H 05/04/17 04:14 INR 1.62 (0.83-1.16) H 05/04/17 04:14 - Physical Exam Constitutional: no apparent distress, not in pain, cachectic Ears, Nose, Mouth, Throat: moist mucous membranes, hearing normal Cardiovascular: regular rate and rhythym Respiratory: no respiratory distress, no rales or rhonchi, clear to auscultation Gastrointestinal: normoactive bowel sounds, soft, non-tender abdomen, no palpable masses Neurologic: No AAOx3 Psychiatric: interacting appropriately, not anxious, not encephalopathic, thought process linear ICD10 Worksheet Patient Problems: Problems Problem Status Onset Chest wall contusion Acute Fall Acute Pneumothorax Acute Rib fractures Acute Syncopal episodes Acute
[2017-05-05 23:25] VITALS: O2SAT 100
--- NOTE | 2017-05-06 08:36 | SOAPPROG ---
SOAP Progress Note Assessment/Plan: Assessment: STABLE WITH LEFT RIB FRACTURES / CHEST X-RAY EXPANDED IN STABLE / REQUIRING OXYGEN SUPPLEMENTATION BREATH SOUNDS EQUAL NO NEW PROBLEMS ON A FULL FOLLOW-UP EXAM Plan: PER INTERNAL MEDICINE 05/04/17 17:43 05/05/17 10:40 AFEBRILE/ SOMEWHAT CONFUSED/ BREATHING BETTER/ DECREASED PAIN 05/06/17 08:34 vs stable/ still confused and weak/ bs equal/ cxr stable wo significant pneumo/ abd soft, nontender/ very difficult situation with downward spiral Objective: Vital Signs Temp Pulse Resp BP Pulse Ox 36.6 C 95 14 136/109 H 100 05/06/17 07:40 05/06/17 07:40 05/06/17 07:40 05/06/17 07:40 05/06/17 07:40 Laboratory Results 05/05/17 04:05 05/05/17 04:05 05/05/17 05/06/17 05/07/17 05:59 05:59 05:59 Intake Total 1580 950 Output Total 350 Balance 1230 950 PT 19.3 SEC (12.0-15.0) H 05/04/17 04:14 INR 1.62 (0.83-1.16) H 05/04/17 04:14 ICD10 Worksheet Patient Problems: Problems Problem Status Onset Chest wall contusion Acute Fall Acute Pneumothorax Acute Rib fractures Acute Syncopal episodes Acute
[2017-05-06] MEDS: ERTAPENEM 0.5 GM in NS 100 ML IV SCH (09:48)
--- NOTE | 2017-05-06 13:31 | HOSPPROG ---
Hospitalist Progress Note Assessment/Plan: * status post fall with multiple fractures * trauma following * etiology of the falls are unclear but probably is due to overall weakness and debility * small pneumothorax * cachexia/ weight loss * CT has a suggestion of possible lung cancer * discussed with family - patient and them would not want any aggressive treatments. * will check a couple tumor markers * severe protein malnutrition * worsening encephalopathy * Could be due to pneumonia and hospitalization superimposed on a very debilitated state * pulmonary consolidation * continue IV Invanz * chronic kidney disease * disposition * Family meeting with hospice today * Possible discharge tomorrow Subjective: More confused this morning Objective: Vital Signs Temp Pulse Resp BP Pulse Ox 36.4 C 95 14 173/106 H 100 05/06/17 10:58 05/06/17 10:58 05/06/17 10:58 05/06/17 10:58 05/06/17 10:58 Laboratory Results 05/05/17 04:05 05/05/17 04:05 05/05/17 05/06/17 05/07/17 05:59 05:59 05:59 Intake Total 1580 950 Output Total 350 Balance 1230 950 PT 19.3 SEC (12.0-15.0) H 05/04/17 04:14 INR 1.62 (0.83-1.16) H 05/04/17 04:14 - Physical Exam Constitutional: no apparent distress, not in pain, chronically ill appearing Ears, Nose, Mouth, Throat: dry mucous membranes Cardiovascular: regular rate and rhythym, no murmur, rub, or gallop Respiratory: no respiratory distress, no rales or rhonchi Skin: warm Neurologic: No AAOx3 ICD10 Worksheet Patient Problems: Problems Problem Status Onset Chest wall contusion Acute Fall Acute Pneumothorax Acute Rib fractures Acute Syncopal episodes Acute
[2017-05-06 15:42] VITALS: RESP 20
--- NOTE | 2017-05-06 17:07 | ASMTCMCOM ---
CM Note CM Note Notes: Patient admitted after two falls at home. PMHx of HTN and BPH. Lives with step-son in [place]. Per patient, has not been feeling well and has had weight loss. Being followed by Cardiology, Trauma, and Hospital Medicine. Initial PT/OT evals suggest patient may need home health or SNF. CM to speak with patient's son Rudy tomorrow. Date Signed: 05/04/2017 04:27 PM Electronically Signed By:Dena Carvajal
--- NOTE | 2017-05-06 17:08 | ASMTCMCOM ---
CM Note CM Note Notes: Met with patient's son Rudy who is caregiver. He has seen a rapid decline in patient's mentation and is eager to get him home. He is looking for additional support at home in the form of hospice, as they have decided not to pursue any aggressive medical measures. Peace RN with [facility] on site to meet with Rudy today. She will coordinate with him to set a time to come back to [facility] tomorrow to have Rudy sign enrollment paperwork. She will then work on getting DME to the home for an anticipated discharge Monday 05/07 CM Discharge plan as of 05/05: home with [facility] Date Signed: 05/05/2017 01:54 PM Electronically Signed By:Dena Carvajal
[2017-05-06 20:16] VITALS: BP 155/100; PULSE 97; TEMP 97.4
--- NOTE | 2017-05-07 06:43 | HOSPPROG ---
Hospitalist Progress Note Assessment/Plan: Callled to bedside by RN at 6:30 AM due to cessation of respirations. Patient DNR, pursuing comfort measures only. Upon my evaluation cranial nerve reflexes were absent, no cardiopulmonary sounds were presents, and patient not withdrawing from pain. Pronounced at 6:38 AM. Next of kin contacted. Objective: Vital Signs Temp Pulse Resp BP Pulse Ox 36.3 C 97 20 155/100 H 100 05/06/17 20:00 05/06/17 20:00 05/06/17 20:00 05/06/17 20:00 05/06/17 20:00 Laboratory Results 05/05/17 04:05 05/05/17 04:05 05/06/17 05/07/17 05/08/17 05:59 05:59 05:59 Intake Total 950 1786 Output Total 450 Balance 950 1336 PT 19.3 SEC (12.0-15.0) H 05/04/17 04:14 INR 1.62 (0.83-1.16) H 05/04/17 04:14 ICD10 Worksheet Patient Problems: Problems Problem Status Onset Chest wall contusion Acute Fall Acute Pneumothorax Acute Rib fractures Acute Syncopal episodes Acute
--- NOTE | 2017-05-07 17:48 | ASDISCHSUM ---
Discharge Information Plan Status:Hospice-Home Medically Cleared to Leave: Discharge Date:05/07/2017 10:09 AM CM D/C Disposition: ADT D/C Disposition: Projected Discharge Date:05/07/2017 11:00 AM Transportation at D/C:None or Unknown Discharge Delay Reason: Follow-Up Date:05/07/2017 11:00 AM Discharge Slot: Final Diagnosis: Placement Information Referral Type:*Hospice Referral ID:[id number] Provider Name: Address 1: Phone Number: Address 2: Fax Number: City: [place]: State: Patient Contact Information Contact Name:DIANA Relationship:Son Address:[address] Work Phone: Gabi:LIZ Clark Phone: [facility] Code:[place] [address] Email: Financial Information Financial Class: Primary Plan Desc:MEDICARE INPATIENT Primary Plan Number:[id number] Secondary Plan Desc: Secondary Plan Number: Assessment Information [facility] CM Progress Note CM Note CM Note Notes: Patient admitted after two falls at home. PMHx of HTN and BPH. Lives with step-son in [place]. Per patient, has not been feeling well and has had weight loss. Being followed by Cardiology, Trauma, and Hospital Medicine. Initial PT/OT evals suggest patient may need home health or SNF. CM to speak with patient's son Rudy tomorrow. Date Signed: 05/04/2017 04:27 PM Electronically Signed By:Dena Carvajal [facility] CM Progress Note CM Note CM Note Notes: Met with patient's son Rudy who is caregiver. He has seen a rapid decline in patient's mentation and is eager to get him home. He is looking for additional support at home in the form of hospice, as they have decided not to pursue any aggressive medical measures. Peace, RN with [facility] on site to meet with Rudy today. She will coordinate with him to set a time to come back to [facility] tomorrow to have Rudy sign enrollment paperwork. She will then work on getting DME to the home for an anticipated discharge Monday 05/07 CM Discharge plan as of 05/05: home with [facility] Date Signed: 05/05/2017 01:54 PM Electronically Signed By:Dena Carvajal Intervention Information
--- NOTE | 2017-05-07 18:01 | GDS ---
[f rep st] DISCHARGE SUMMARY NEW AND ACUTE DIAGNOSES ON THIS ADMISSION: 1. The patient on 05/07 at 6:38 a.m. The patient was comfort measures only, Do Not Resuscit ate. 2. Status post falls with multiple fractures and a small pneumothorax. 3. Cachexia and weight loss. 4. Severe protein caloric malnutrition. 5. Severe encephalopathy. 6. Pulmonary consolidation. 7. Acute on chronic kidney disease. CONSULTATIONS: With Cardiology, Surgery, Case Management. PROCEDURES: Head CT, chest CT, abdominal and pelvis CT. HOSPITAL COURSE: This is an 87-year-old man who lives in [place]. He fell 4 days prior to his ad mission. He was found on admission to have rib fractures and a pneumothorax. CT scan suggested a po ssible lung cancer. No cardiac causes could be found for the gentleman's fall. Because of his compl icated and multiple medical problems, family consultation was obtained and they requested hospice enedina luation and ultimately decided on comfort care measures only and DNR status. The patient on 05/07 at 6:38 a.m. TIME REQUIRED: 35 minutes. /[id number]/MODL
== END 2017-05-07 10:09 | disposition expired | DRG 199 ==
LOC: F2W 16:30
PROVIDERS: ADMIT Student in an Organized Health Care Education/Training Program; ATTEND Student in an Organized Health Care Education/Training Program
DX: S27.0XXA Traumatic pneumothorax, initial encounter (principal); E43 Unspecified severe protein-calorie malnutrition; G93.49 Other encephalopathy; S22.42XA Multiple fractures of ribs, left side, initial encounter for closed fracture; R64 Cachexia; N17.9 Acute kidney failure, unspecified; C34.90 Malignant neoplasm of unspecified part of unspecified bronchus or lung; I12.9 Hypertensive chronic kidney disease with stage 1 through stage 4 chronic kidney disease, or unspecified chronic kidney disease; N18.9 Chronic kidney disease, unspecified; I71.2 Thoracic aortic aneurysm, without rupture; N40.0 Benign prostatic hyperplasia without lower urinary tract symptoms; R13.10 Dysphagia, unspecified; W19.XXXA Unspecified fall, initial encounter; Z72.0 Tobacco use; Z66 Do not resuscitate; Z51.5 Encounter for palliative care; Z85.46 Personal history of malignant neoplasm of prostate
CPT/HCPCS: 92610-GN; 96365; 96366; 97116-GP; 97161-GP; 97166-GO; 97530-GP; 97535-GO; G0103; G8978-GP-CK; G8979-GP-CJ; G8987-GO-CL; G8988-GO-CJ; G8996-GN-CI; G8997-GN-CH; J1335; J1956